=== PATIENT | female | born 1945 | race African-American/Black ===

== ENCOUNTER 2023-01-04 05:04 | Day surgery (SDC) | payer OTHER ==
[2023-01-03 12:41] VITALS: BMI 23.0
[2023-01-04] MEDS ORDERED: LIDOCAINE HCL 1%, 10 MG/ML (20ML VIAL) ONE (07:24)
[2023-01-04] MEDS ORDERED: HEPARIN NA (PORCINE) 5,000 UNITS/ML 1ML VIAL ONE (07:24)
[2023-01-04] MEDS ORDERED: MIDAZOLAM HCL 2 MG/2 ML SINGLE DOSE VIAL ONE ×2 (07:55→08:36)
[2023-01-04] MEDS ORDERED: FENTANYL CITRATE/PF 50 MCG/ML VIAL ONE (07:55)
[2023-01-04] MEDS ORDERED: PROPOFOL 20 ML ONE (07:55)
[2023-01-04] MEDS ORDERED: DEXMEDETOMIDINE HCL 200 MCG/2 ML IVPB ONE (08:01)
[2023-01-04] MEDS ORDERED: ceFAZolin SODIUM 1 GM VIAL IVPB ONE (08:25)
[2023-01-04] MEDS ORDERED: LIDOCAINE HCL 1%, 10 MG/ML (20ML VIAL) NR ONE (08:30)
[2023-01-04] MEDS ORDERED: CLOPIDOGREL BISULFATE 75 MG TABLET (FP) PO ONE (09:37)
[2023-01-04] MEDS ORDERED: LACTATED RINGERS SOLUTION 1,000 ML IV SCH (09:45)
[2023-01-04] MEDS ORDERED: CLOPIDOGREL BISULFATE 75 MG TABLET (FP) ONE (10:44)
[2023-01-04 11:29] VITALS: RESP 18; TEMP 97
[2023-01-04 12:17] VITALS: BP 131/60; PULSE 66
== END 2023-01-04 12:20 | disposition home or self-care (01) ==
LOC: JASU-SURG 05:04
PROVIDERS: ATTEND Surgery Vascular Surgery
PROC: 047Q3ZZ Dilation of Left Anterior Tibial Artery, Percutaneous Approach (ICD-10-PCS; 2023-01-04)
PROC: 047L3DZ Dilation of Left Femoral Artery with Intraluminal Device, Percutaneous Approach (ICD-10-PCS; principal; 2023-01-04 08:00)
DX: I73.9 Peripheral vascular disease, unspecified (principal)
CPT/HCPCS: 37226; 37228; C1877; C1885; 76000-TC-FY; 94760; C1760; C1769; C1876; J1644